=== PATIENT | female | born 1940 | race Caucasian/White ===

== ENCOUNTER → 2017-05-05 | Outpatient (CLI) | payer MEDICARE, BC ==
--- NOTE | 2017-05-06 11:39 | MM ---
Reason for exam: screening (asymptomatic). Last mammogram was performed 1 year ago. History: Patient is postmenopausal and has history of other cancer at age 65. Family history of premenopausal breast cancer in mother. Benign US right guided VAD of the right breast, May 28, 2009. Took estrogen for 8 years beginning at age 53. Physical Findings: A clinical breast exam by your physician is recommended on an annual basis and results should be correlated with mammographic findings. MG 3D Screening Mammo W/Cad Bilateral CC and MLO view(s) were taken. Prior study comparison: April 26, 2016, bilateral MG screening mammo w CAD. November 24, 2015, right breast MG 3d diag mammo w/cad RT. The breast tissue is heterogeneously dense. This may lower the sensitivity of mammography. No suspicious abnormality. No significant changes when compared with prior studies. ASSESSMENT: Negative, BI-RAD 1 RECOMMENDATION: Routine screening mammogram of both breasts in 1 year.
== END | disposition home or self-care (01) ==
LOC: RADMAMWWP 13:07
PROVIDERS: ATTEND Internal Medicine
DX: Z12.31 Encounter for screening mammogram for malignant neoplasm of breast (principal)
CPT/HCPCS: 77063; G0202

== ENCOUNTER → 2018-05-24 | Outpatient (CLI) | payer MEDICARE, BC ==
--- NOTE | 2018-05-26 09:11 | MM ---
Reason for exam: screening (asymptomatic). Last mammogram was performed 1 year and 1 month ago. History: Patient is postmenopausal and has history of other cancer at age 65. Family history of premenopausal breast cancer in mother. Benign US right guided VAD of the right breast, May 28, 2009. Took estrogen for 8 years beginning at age 53. Physical Findings: A clinical breast exam by your physician is recommended on an annual basis and results should be correlated with mammographic findings. MG 3D Screening Mammo W/Cad Bilateral CC and MLO view(s) were taken. Prior study comparison: May 05, 2017, bilateral MG 3d screening mammo w/cad. April 26, 2016, bilateral MG screening mammo w CAD. The breast tissue is heterogeneously dense. This may lower the sensitivity of mammography. Previous mammotome biopsy in the right breast. No significant changes when compared with prior studies. ASSESSMENT: Negative, BI-RAD 1 RECOMMENDATION: Routine screening mammogram of both breasts in 1 year.
== END | disposition home or self-care (01) ==
LOC: RADMAMWWP 14:04
PROVIDERS: ATTEND Internal Medicine
DX: Z12.31 Encounter for screening mammogram for malignant neoplasm of breast (principal)
CPT/HCPCS: 77063; 77067

== ENCOUNTER → 2019-06-08 | Outpatient (CLI) | payer MEDICARE, BC ==
--- NOTE | 2019-06-10 13:16 | BD ---
EXAMINATION TYPE: Axial Bone Density DATE OF EXAM: 06/08/2019 COMPARISON: 06.26.2015 CLINICAL HISTORY: 78 YR OLD FEMALE ICD-10 CODE: Z78.0 POST MENOPAUSAL Height: 59 Weight: 112 FRAX RISK QUESTIONS: NOTHING TO NOTE HERE PER PATIENT RISK FACTORS HISTORY OF: Active: YES Postmenopausal woman: YES, TOTAL HYST. AT AGE 53, HORMONES IN PAST FOR 8 YRS ONLY Lost more than 2 inches in height since high school: YES Hyperparathyroidism: NO Adrenal Insufficiency: NO MEDICATIONS: Additional Medications: BP MEDS, REFLUX MEDS, OTC CHOLESTEROL MEDS, VIT D ON AND OFF Additional History: HYPERTENSION, CHOLESTEROL AND REFLUX ON AND OFF EXAM MEASUREMENTS: Bone mineral densitometry was performed using the [employer] System. Bone mineral density as measured about the Lumbar spine is: ----- L1-L4(G/cm2): 1.180 T Score Values are as follows: ----- L1: -1.2 ----- L2: -0.6 ----- L3: 0.4 ----- L4: 1.2 ----- L1-L4: 0.0 Bone mineral density has: Increased 3.8% since study of: 06.26.2015 Bone mineral density about the R hip (g/cm2): 0.953 Bone mineral density about the L hip (g/cm2): 0.917 T Score values are as follows: -----R Neck: -1.0 -----L Neck: -1.1 -----R Total: -0.4 -----L Total: -0.7 Bone mineral density has: Decreased -10.8% since study of: 06.26.2015 FRAX%s: THERE IS A 10.5% CHANCE FOR A MAJOR OSTEOPOROTIC FX AND A 2.0% FOR HIP....PROBABILITY FOR F X IN 10 YRS TIME IMPRESSION: Osteopenia (T Score between -2.5 and -1). There is slightly increased risk of fracture and the patient may be considered for treatment. Re-Screen 2-5 years. NOTE: T-SCORE=SD OF THE YOUNG ADULT MEAN.
--- NOTE | 2019-06-11 12:56 | MM ---
Reason for exam: screening (asymptomatic). Last mammogram was performed 1 year ago. History: Patient is postmenopausal and has history of other cancer at age 65. Family history of premenopausal breast cancer in mother. Benign US right guided VAD of the right breast, May 28, 2009. Took estrogen for 8 years beginning at age 53. Physical Findings: A clinical breast exam by your physician is recommended on an annual basis and results should be correlated with mammographic findings. MG 3D Screening Mammo W/Cad Bilateral CC and MLO view(s) were taken. Prior study comparison: May 24, 2018, bilateral MG 3d screening mammo w/cad. May 05, 2017, bilateral MG 3d screening mammo w/cad. The breast tissue is heterogeneously dense. This may lower the sensitivity of mammography. Benign appearing bilateral calcifications. Right biopsy marker noted. Stable right upper outer quadrant focal asymmetry. ASSESSMENT: Benign, BI-RAD 2 RECOMMENDATION: Routine screening mammogram of both breasts in 1 year.
== END | disposition home or self-care (01) ==
LOC: RADMAMWWP 15:13
PROVIDERS: ATTEND Family Medicine
DX: Z12.31 Encounter for screening mammogram for malignant neoplasm of breast (principal); M85.80 Other specified disorders of bone density and structure, unspecified site; Z78.0 Asymptomatic menopausal state
CPT/HCPCS: 77063; 77067; 77080

== ENCOUNTER → 2021-01-01 | Outpatient (CLI) | payer MEDICARE, BC ==
[2021-01-01 19:19] LABS: Basophils # (A) 0.07 X 10*3/uL (0.00-0.10); Basophils % (A) 1.1 %; Eosinophils # (A) 0.23 X 10*3/uL (0.04-0.35); Eosinophils % (A) 3.5 %; HGB 14.4 g/dL (12.0-15.0); Lymphocytes # (A) 1.59 X 10*3/uL (0.90-5.00); Lymphocytes % (A) 23.9 %; MCHC 31.3 g/dL (32.0-37.0); MCV 99.1 fL (80.0-97.0); Mean Platelet Volume 11.7 fL (9.5-12.2); Monocytes # (A) 0.83 X 10*3/uL (0.20-1.00); Monocytes % (A) 12.5 %; Neutrophils # (A) 3.92 X 10*3/uL (1.80-7.70); Neutrophils % (A) 58.8 %; Platelet Count 190 X 10*3/uL (140-440); RBC 4.64 X 10*6/uL (4.10-5.20); RDW 11.9 % (11.5-14.5); WBC 6.65 X 10*3/uL (4.50-10.00)
[2021-01-01 22:37] LABS: African American GFR (CKD) 81.3 (60.0-200.0); Albumin 4.6 g/dL (3.80-4.90); Albumin/Globulin Ratio 1.77 (1.60-3.17); Anion Gap 11.7 mmol/L (4.00-12.00); BUN/Creat Ratio 28.75 Ratio (12.00-20.00); Calcium 10.1 mg/dL (8.7-10.3); Carbon Dioxide 28.3 mmol/L (21.6-31.8); Chol/HDL Ratio 4.08; Globulin 2.6 g/dL (1.6-3.3); LDL Cholesterol,Calculated 129.8 mg/dL (0.0-131.0); Non-African American GFR(CKD) 70.1 (60.0-200.0); Potassium 4.8 mmol/L (3.5-5.5); Total Bilirubin 0.6 mg/dL (0.3-1.2); Total Protein 7.2 g/dL (6.2-8.2); VLDL Calculation 21.2 mg/dL (5.00-40.00)
== END | disposition home or self-care (01) ==
LOC: LABWHC1 08:53
PROVIDERS: ATTEND Family Medicine
DX: I10 Essential (primary) hypertension (principal); E78.5 Hyperlipidemia, unspecified; E55.9 Vitamin D deficiency, unspecified
CPT/HCPCS: 36415; 80053; 80061; 82306; 84443; 85025

== ENCOUNTER → 2021-02-25 | Outpatient (CLI) | payer MEDICARE, BC ==
--- NOTE | 2021-02-27 10:21 | MM ---
Reason for exam: screening (asymptomatic). Last mammogram was performed 1 year and 9 months ago. History: Patient is postmenopausal and has history of other cancer at age 65. Family history of premenopausal breast cancer in mother. Benign US right guided VAD of the right breast, May 28, 2009. Took estrogen for 8 years beginning at age 53. Physical Findings: A clinical breast exam by your physician is recommended on an annual basis and results should be correlated with mammographic findings. MG 3D Screening Mammo W/Cad Bilateral CC and MLO view(s) were taken. Prior study comparison: June 08, 2019, bilateral MG 3d screening mammo w/cad. May 24, 2018, bilateral MG 3d screening mammo w/cad. The breast tissue is heterogeneously dense. This may lower the sensitivity of mammography. Finding: There are indeterminate calcifications in the subareolar position of the right breast. New finding since June 08, 2019 and May 24, 2018. ASSESSMENT: Incomplete: need additional imaging evaluation, BI-RAD 0 RECOMMENDATION: Special view mammogram of the right breast. [facility] will attempt to contact patient to return for supplemental views.
== END | disposition home or self-care (01) ==
LOC: RADBDWWP 15:38
PROVIDERS: ATTEND Family Medicine
DX: Z12.31 Encounter for screening mammogram for malignant neoplasm of breast (principal); Z78.0 Asymptomatic menopausal state; Z80.3 Family history of malignant neoplasm of breast
CPT/HCPCS: 77063; 77067

== ENCOUNTER → 2021-03-05 | Outpatient (CLI) | payer MEDICARE, BC ==
--- NOTE | 2021-03-06 10:36 | MM ---
Reason for exam: additional evaluation requested from abnormal screening. Last mammogram was performed less than 1 month ago. History: Patient is postmenopausal and has history of other cancer at age 65. Family history of premenopausal breast cancer in mother. Benign US right guided VAD of the right breast, May 28, 2009. Took estrogen for 8 years beginning at age 53. Physical Findings: Nurse did not find any significant physical abnormalities on exam. MG 3D Work Up W/Cad RT Spot compression CC, spot compression CCRL, CC with magnification, CCRL with magnification, and ML view(s) were taken of the right breast. Prior study comparison: February 25, 2021, bilateral MG 3d screening mammo w/cad. June 08, 2019, bilateral MG 3d screening mammo w/cad. The breast tissue is heterogeneously dense. This may lower the sensitivity of mammography. There are vascular calcifications and a couple of scattered calcifications in the retroareolar left breast which do not qualify as a grouping. These results were verbally communicated with the patient and result sheet given to the patient on 03/05/21. ASSESSMENT: Benign, BI-RAD 2 RECOMMENDATION: Return to routine screening mammogram schedule for both breasts.
== END | disposition home or self-care (01) ==
LOC: RADMAMWWP 13:54
PROVIDERS: ATTEND Family Medicine
DX: R92.1 Mammographic calcification found on diagnostic imaging of breast (principal); Z78.0 Asymptomatic menopausal state; Z80.3 Family history of malignant neoplasm of breast
CPT/HCPCS: 77065; G0279; 77061

== ENCOUNTER → 2021-08-13 | Outpatient (CLI) | payer MEDICARE, BC | END | disposition home or self-care (01) | LOC: RADBDWWP 14:06 | PROVIDERS: ATTEND Family Medicine | DX: Z53.9 Procedure and treatment not carried out, unspecified reason (principal) ==

== ENCOUNTER → 2021-09-16 | Outpatient (CLI) | payer MEDICARE, BC ==
--- NOTE | 2021-09-16 19:07 | BD ---
EXAMINATION TYPE: Axial Bone Density DATE OF EXAM: 09/16/2021 COMPARISON: 2019 CLINICAL HISTORY: Postmenopausal screening Height: 4 FT 11 1/2 IN Weight: 119 FRAX RISK QUESTIONS: Alcohol (3 or more units per day): NO Family History (Parent hip fracture): NO Glucocorticoids (More than 3mos): NO (Ex: prednisone, prednisolone, methylprednisolone, dexamethasone, and hydrocortisone). History of Fracture in Adulthood: NO Secondary Osteoporosis: 1. Type 1 Diabetes: NO 2. Hyperthyroidism: NO 3. Menopause before 45: NO 4. Malnutrition: NO 5. Chronic liver disease: NO Rheumatoid Arthritis: NO Current Tobacco Use: NO RISK FACTORS HISTORY OF: Surgery to Spine/Hip(right/left)/Wrist (right/left): NO Family History of Osteoporosis: NO Active: SOMEWHAT Diet low in dairy products/other sources of calcium: NO Postmenopausal woman: YES Take estrogen and/or progesterone medications: TOOK HRT FOR APPROX 10 YEARS Lost more than 2 inches in height since high school: YES Frequent falls: UNSTEADY Poor Health: GOOD Hyperparathyroidism: NO Adrenal Insufficiency: NO MEDICATIONS: Additional Medications: VIT D, AMLODIPINE, Additional History: EXAM MEASUREMENTS: Bone mineral densitometry was performed using the [employer] System. Bone mineral density as measured about the Lumbar spine is: ----- L1-L4(G/cm2): 1.130 T Score Values are as follows: ----- L2: -0.8 ----- L3: -0.2 ----- L4: 0.2 ----- L1-L4: -0.4 Bone mineral density has: DECREASED -6.2 % since study of: 2018 Bone mineral density about the R hip (g/cm2): 0.915 Bone mineral density about the L hip (g/cm2): 0.763 T Score values are as follows: -----R Neck: -0.9 -----L Neck: -2.0 -----R Total: -0.7 -----L Total: -1.3 Bone mineral density has: DECREASED -5.8 % since study of: 2019 IMPRESSION: Osteopenia (T Score between -2.5 and -1). There is slightly increased risk of fracture and the patient may be considered for treatment. Re-Screen 2-5 years. NOTE: T-SCORE=SD OF THE YOUNG ADULT MEAN.
== END | disposition home or self-care (01) ==
LOC: LABWHC1 12:44
PROVIDERS: ATTEND Family Medicine
DX: M85.80 Other specified disorders of bone density and structure, unspecified site (principal)
CPT/HCPCS: 77080

== ENCOUNTER → 2022-09-20 | Outpatient (CLI) | payer MEDICARE ==
--- NOTE | 2022-09-21 10:31 | US ---
EXAMINATION TYPE: US st tissue neck DATE OF EXAM: 09/20/2022 COMPARISON: none CLINICAL HISTORY: 81-year-old female R22.1 SWELLING, MASS LUMP NECK Z12.31. Technique: Targeted ultrasound along the right supraclavicular region corresponding to the palpable s ite. FINDINGS: No solid or cystic lesion or evident lymphadenopathy here. Comparison images to the contralateral cookie e were obtained. Net Sorter notes: At patients palpable there is no fluid collection or mass. IMPRESSION: Targeted scanning along the right supraclavicular region corresponding to the patient's palpable site . No discrete sonographic abnormality here. Clinical follow-up recommended. If any enlarging abnormal ity is detected, the area can be rescanned.
--- NOTE | 2022-09-21 10:54 | XR ---
EXAMINATION TYPE: XR chest 2V DATE OF EXAM: 09/20/2022 COMPARISON: 08/10/2012 HISTORY: 81-year-old female R059, cough TECHNIQUE: Frontal and lateral views FINDINGS: The cardiomediastinal silhouette, aorta, and pulmonary vasculature are within normal limits. Mild hyp erinflation. Mild interstitial prominence. No consolidation or pleural effusion. Accentuated midthora cic kyphosis. IMPRESSION: Correlate for possible underlying COPD. Otherwise, no acute process seen.
--- NOTE | 2022-09-21 18:56 | MM ---
Reason for Exam: Screening (asymptomatic). Last mammogram was performed 1 year(s) and 7 month(s) ago. Patient History: Menarche at age 13. First Full-Term at age 21. Left ovary removed at age 75. Right ovary removed at age 75. Hysterectomy at age 75. Postmenopausal. Patient has history of breast feeding. Other cancer, age 65. Estrogen for 8 years from age 53 until age 61. 05/28/2009, Benign Core Biopsy on the right side. Mother had breast cancer. Risk Values: Kandis 5 year model risk: 3.7%. NCI Lifetime model risk: 5.7%. Prior Study Comparison: 06/08/2019 Bilateral Screening Mammogram, [facility]. 02/25/2021 Bilateral Screening Mammogram, [facility]. 03/05/2021 Right Diagnostic Mammogram, [facility]. Tissue Density: The breast tissue is heterogeneously dense. This may lower the sensitivity of mammography. Findings: Analyzed By CAD. There is a bilaterally symmetric density remain unchanged. Microclip anterior right breast from prior biopsy. Unchanged global asymmetry upper outer quadrant right breast and nodularity superior left MLO view in the middle depth as well as an anterior depth. A few benign oil cyst calcifications. No significant change from prior exams. Overall Assessment: Benign, BI-RAD 2 Management: Screening Mammogram of both breasts in 1 year. 1. Patient should continue monthly self breast exams. 2. A clinical breast exam by your physician is recommended on an annual basis. 3. This exam should not preclude additional follow-up of suspicious palpable abnormalities. Electronically signed and approved by: Jose Alberto Sotomayor M.D. Radiologist
== END | disposition home or self-care (01) ==
LOC: RADUSWWP 15:59
PROVIDERS: ATTEND Family Medicine
DX: Z12.31 Encounter for screening mammogram for malignant neoplasm of breast (principal); R22.1 Localized swelling, mass and lump, neck; Z80.3 Family history of malignant neoplasm of breast; Z78.0 Asymptomatic menopausal state
CPT/HCPCS: 71046; 76536; 77063; 77067

== ENCOUNTER → 2023-09-09 | Outpatient (CLI) | payer MEDICARE ==
[2023-09-09 15:10] LABS: Basophils # (A) 0.06 X 10*3/uL (0.00-0.10); Basophils % (A) 1.1 %; Eosinophils # (A) 0.18 X 10*3/uL (0.04-0.35); Eosinophils % (A) 3.4 %; HCT 45.1 % (37.2-46.3); HGB 14.4 g/dL (12.0-15.0); Lymphocytes # (A) 1.59 X 10*3/uL (0.90-5.00); Lymphocytes % (A) 29.7 %; MCH 30.9 pg (27.0-32.0); MCHC 31.9 g/dL (32.0-37.0); MCV 96.8 FL (80.0-97.0); Monocytes # (A) 0.66 X 10*3/uL (0.20-1.00); Monocytes % (A) 12.3 %; NRBC Per 100 WBC 0 X 10*3/uL (0.00-0.01); Neutrophils # (A) 2.85 X 10*3/uL (1.80-7.70); Neutrophils % (A) 53.3 %; Platelet Count 218 X 10*3/uL (140-440); RBC 4.66 X 10*6/uL (4.10-5.20); WBC 5.35 X 10*3/uL (4.50-10.00)
[2023-09-09 15:55] LABS: BUN/Creat Ratio 27.29 Ratio (12.00-20.00); Blood Urea Nitrogen 19.1 mg/dL (9.0-27.0); Chol/HDL Ratio 3.44 Ratio; Glucose 89 mg/dL (70-110); LDL Cholesterol,Calculated 130.4 mg/dL (0.0-131.0); VLDL Calculation 13.62 mg/dL (5.00-40.00)
[2023-09-09 15:56] LABS: ALT 14 U/L (8-44); AST 23 U/L (13-35); Albumin 4.1 g/dL (3.8-4.9); Albumin/Globulin Ratio 1.41 Ratio (1.60-3.17); Alkaline Phosphatase 49 U/L (41-126); Calcium 9.5 mg/dL (8.7-10.3); Carbon Dioxide 28.6 mmol/L (21.6-31.8); Chloride 103 mmol/L (96-109); Globulin 2.9 g/dL (1.6-3.3); Potassium 4.5 mmol/L (3.5-5.5); Sodium 141 mmol/L (135-145); Total Bilirubin 0.3 mg/dL (0.3-1.2)
== END | disposition home or self-care (01) ==
LOC: LABWHC1 10:34
PROVIDERS: ATTEND Family Medicine
DX: I10 Essential (primary) hypertension (principal); E78.5 Hyperlipidemia, unspecified; E55.9 Vitamin D deficiency, unspecified
CPT/HCPCS: 36415; 80053; 80061; 82306; 85025

== ENCOUNTER → 2023-10-04 | Outpatient (CLI) | payer MEDICARE ==
--- NOTE | 2023-10-04 15:06 | BD ---
EXAMINATION TYPE: Axial Bone Density DATE OF EXAM: 10/04/2023 CLINICAL HISTORY: 82 years old Female. ICD-10 CODE: M85.80 OT DISRD OF BONE DENSITY AND STRUCTURE, UN Height: 58.25 Weight: 114 FRAX RISK QUESTIONS: Family History (Parent hip fracture): no History of Fracture in Adulthood: no Secondary Osteoporosis: no RISK FACTORS EXAM MEASUREMENTS: Bone mineral densitometry was performed using the [employer] System. Bone mineral density as measured about the Lumbar spine is: ----- L1-L4(G/cm2): 1.088 T Score Values are as follows: ----- L1: -0.4 ----- L2: -1.5 ----- L3: -1.1 ----- L4: -0.1 ----- L1-L4: -0.8 Z Score Values are as follows: ----- L1: 1.9 ----- L2: 0.8 ----- L3: 1.2 ----- L4: 2.2 ----- L1-L4: 1.5 Bone mineral density has: Decreased -3.7% since study of: 09/16/2021 Bone mineral density about the R hip (g/cm2): 0.884 Bone mineral density about the L hip (g/cm2): 0.814 T Score values are as follows: -----R Neck: -1.0 -----L Neck: -1.7 -----R Total: -1.0 -----L Total: -1.5 Z Score values are as follows: -----R Neck: 1.5 -----L Neck: 0.8 -----R Total: 1.4 -----L Total: 0.9 Bone mineral density has: Decreased -3.6% since study of: 09/16/2021 FRAX%s: The graph provided illustrates a 14.0% chance for a major osteoporotic fx and a 4.0% chance f or the hips probability for fx in 10 years time. IMPRESSION: Osteopenia (T Score between -2.5 and -1). There is slightly increased risk of fracture and the patient may be considered for treatment. Re-Screen 2-5 years. NOTE: T-SCORE=SD OF THE YOUNG ADULT MEAN.
--- NOTE | 2023-10-05 09:10 | MM ---
Reason for Exam: Screening (asymptomatic). Last screening mammogram was performed 12 month(s) ago. Patient History: Menarche at age 13. First Full-Term at age 21. Left ovary removed at age 75. Right ovary removed at age 75. Hysterectomy at age 75. Postmenopausal. Patient has history of breast feeding. Estrogen for 8 years from age 53 until age 61. 05/28/2009, Benign Core Biopsy on the right side. Mother had breast cancer. Risk Values: Kandis 5 year model risk: 3.6%. NCI Lifetime model risk: 5.2%. Prior Study Comparison: 02/25/2021 Bilateral Screening Mammogram, [facility]. 03/05/2021 Right Diagnostic Mammogram, [facility]. 09/20/2022 Bilateral MG 3D screening mammo w/cad, [facility]. Tissue Density: The breast tissue is heterogeneously dense. This may lower the sensitivity of mammography. Findings: Analyzed By CAD. There is no suspicious group of microcalcifications or new suspicious mass. Benign-appearing calcifications bilaterally. Overall Assessment: Benign, BI-RAD 2 Management: Screening Mammogram of both breasts in [address] [facility] will attempt to contact patient to return for supplemental views and ultrasound if indicated. Patient should continue monthly self-breast exams. A clinical breast exam by your physician is recommended on an annual basis. This exam should not preclude additional follow-up of suspicious palpable abnormalities. Note on Kandis scores and lifetime risk: 1. A Kandis score greater than 3% is considered moderate risk. If this is the case, consider specialist referral to assess eligibility for a risk reducing agent. 2. If overall lifetime risk for the development of breast cancer is 20% or higher, the patient may qualify for future screening with alternating mammogram and breast MRI. Electronically signed and approved by: Siddhartha Crespo DO
== END | disposition home or self-care (01) ==
LOC: RADMAMWWP 14:02
PROVIDERS: ATTEND Family Medicine
DX: Z12.31 Encounter for screening mammogram for malignant neoplasm of breast (principal); M85.80 Other specified disorders of bone density and structure, unspecified site; Z78.0 Asymptomatic menopausal state; Z80.3 Family history of malignant neoplasm of breast
CPT/HCPCS: 77063; 77067; 77080

== ENCOUNTER → 2024-12-04 | Outpatient (CLI) | payer MEDICARE ==
--- NOTE | 2024-12-04 15:51 | MM ---
Reason for Exam: Screening (asymptomatic). Last mammogram was performed 1 year(s) and 2 month(s) ago. Patient History: Menarche at age 13. First Full-Term at age 21. Hysterectomy at age 75. Postmenopausal. Patient has history of breast feeding. Estrogen for 8 years from age 53 until age 61. 05/28/2009, Benign Core Biopsy on the right side. Mother had breast cancer. Risk Values: Kandis 5 year model risk: 3.4%. NCI Lifetime model risk: 4.1%. Prior Study Comparison: 03/05/2021 Right Diagnostic Mammogram, [facility]. 09/20/2022 Bilateral MG 3D screening mammo w/cad, [facility]. 10/04/2023 Bilateral MG 3D screening mammo w/cad, [facility]. Tissue Density: The breasts are heterogeneously dense, which may obscure small masses. Findings: Analyzed By CAD. There is no suspicious group of microcalcifications or new suspicious mass in either breast. Benign appearing calcifications. Surgical clip in the right breast. Asymmetric density involving the right breast is stable. Overall Assessment: Benign, BI-RAD 2 Management: Screening Mammogram of both breasts in 1 year. . Patient should continue monthly self-breast exams. A clinical breast exam by your physician is recommended on an annual basis. This exam should not preclude additional follow-up of suspicious palpable abnormalities. Note on Kandis scores and lifetime risk: 1. A Kandis score greater than 3% is considered moderate risk. If this is the case, consider specialist referral to assess eligibility for a risk reducing agent. 2. If overall lifetime risk for the development of breast cancer is 20% or higher, the patient may qualify for future screening with alternating mammogram and breast MRI. [facility], , 12/04/2024 3:48 PM. Electronically signed and approved by: Yogesh Cevallos M.D. Radiologis
== END | disposition home or self-care (01) ==
LOC: RADMAMWWP 15:20
PROVIDERS: ATTEND Family Medicine
DX: Z12.31 Encounter for screening mammogram for malignant neoplasm of breast (principal); R92.333 Mammographic heterogeneous density, bilateral breasts; R92.1 Mammographic calcification found on diagnostic imaging of breast; Z78.0 Asymptomatic menopausal state; Z80.3 Family history of malignant neoplasm of breast
CPT/HCPCS: 77063; 77067